=== PATIENT | male | born 1980 | race Caucasian/White ===

== ENCOUNTER → 2019-01-20 | Outpatient (CLI) | payer OTHER ==
--- NOTE | 2019-01-20 09:46 | Diagnostic Imaging Report ---
EXAM: CHEST 2 VIEWS DATE: 01/20/2019 8:54 AM INDICATION: ^[id number] ^0922 ^Other chest pain COMPARISON: None FINDINGS: Lines and tubes: None Heart size normal. No focal pulmonary opacity, pleural effusion or pneumothorax. Upper abdomen unremarkable. No acute bony abnormality. IMPRESSION: No evidence for acute disease. Signed by: Dr. Raza Chiang M.D. on 01/20/2019 9:43 AM
== END ==
LOC: RAD 08:49
PROVIDERS: ATTEND Internal Medicine
DX: R07.89 Other chest pain (principal)
CPT/HCPCS: 71046

== ENCOUNTER → 2020-03-20 | Outpatient (CLI) | payer OTHER ==
[~2020-03-20] MED LIST: IOPAMIDOL 370 MG/ML 200 ML INFUS..BTL INJ ONE; SODIUM CHLORIDE 0.9% 100 ML ONE
--- NOTE | 2020-03-20 09:50 | Diagnostic Imaging Report ---
EXAM: CT Angiogram Chest WITH contrast INDICATION: Aortic aneurysm COMPARISON: Chest radiograph 01/20/2019. TECHNIQUE: Chest was scanned utilizing a multidetector helical scanner from the lung apex through the level of the adrenal glands after administration of IV contrast in arterial phase. Coronal and sagittal reformations were obtained. CT Angiogram protocol was performed. 3D reconstruction was performed and viewed on dedicated workstation. Dose modulation, iterative reconstruction, and/or weight based adjustment of the mA/kV was utilized to reduce the radiation dose to as low as reasonably achievable. IV CONTRAST: 100 mL of Isovue-370 RADIATION DOSE: Total DLP: 375 mGy*cm COMPLICATIONS: None FINDINGS: VASCULAR FINDINGS: Thoracic aorta: Aortic Annulus: 3.0 cm Sinus of Valsalva: 4.0 cm Sinotubular junction: 2.6 cm Ascending Aorta at level of PA: 2.9 cm Mid Arch: 2.3 cm Proximal Descendin.3 cm Mid Descendin.9 cm Distal Descendin.3 cm Aortic hiatus: 2.3 cm Direct origin of the left vertebral artery from the aortic arch. Common origin of brachiocephalic and left common carotid arteries. No evidence of aortic dissection. No significant atherosclerotic changes within the thoracic aorta. The main pulmonary artery is not enlarged. No evidence of central pulmonary embolism. 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 LINES/ TUBES: None. LUNGS AND AIRWAYS: The central airways are patent. No evidence of pneumonia or pulmonary edema. PLEURA: The pleural spaces are clear. HEART AND MEDIASTINUM: The thyroid gland is normal. No supraclavicular, axillary, mediastinal, or hilar lymphadenopathy. The heart is not enlarged. No pericardial effusion. UPPER ABDOMEN: No acute findings. BONES/SOFT TISSUES: No acute osseous abnormality. No suspicious lytic or blastic lesion. IMPRESSION: No thoracic aortic aneurysm or dissection. Thoracic aortic measurements as above. 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 No focal pneumonia or pulmonary edema. Signed by: Shiloh Juarez MD on 03/20/2020 9:47 AM
== END ==
LOC: CT 08:29
PROVIDERS: ATTEND Internal Medicine
DX: Z13.6 Encounter for screening for cardiovascular disorders (principal); I71.2 Thoracic aortic aneurysm, without rupture
CPT/HCPCS: 71275; J7050; Q9967

== ENCOUNTER → 2020-05-23 | Outpatient (CLI) | payer OTHER ==
--- NOTE | 2020-05-23 10:46 | Diagnostic Imaging Report ---
EXAM: CTA of the Abdominal Aorta and Pelvic Arteries WITH Contrast INDICATION: ^[id number] ^0930 ^CELIAC STENOSIS COMPARISON: CT chest 03/20/2020 TECHNIQUE: Multi-detector CT technology was employed. CTA of the abdomen and pelvis was performed after the administration of IV contrast. IV CONTRAST: 150 mL of Omnipaque 350 ORAL CONTRAST: None COMPLICATIONS: None RADIATION DOSE: Total DLP: 400 mGy*cm Estimated effective dose: (DLP x 0.015 x size factor) mSv CTDIvol has been reviewed. It is below the limits set by the Radiation Protocol Committee (RPC). Dose modulation, iterative reconstruction, and/or weight based adjustment of the mA/kV was utilized to reduce the radiation dose to as low as reasonably achievable. For optimization of anatomic evaluation, multiplanar reconstruction, maximum intensity projections, and advanced 3-D off-line postprocessing were performed on a dedicated stand-alone workstation under the direct supervision of the interpreting physician. FINDINGS: Potential study limitations: None. VASCULAR WITH ADVANCED 3-D OFF-LINE POSTPROCESSING: The abdominal aorta is normal in course, caliber, and contour. There is no acute aortic pathology . Aortic plaques: None The abdominal aorta measures: 2.4 cm at the supramesenteric segment 2.2 cm at the mesenteric segment 2.2 cm at the renal segment 1.8 cm at the mid infrarenal segment 1.8 cm at the aortic bifurcation. When compared to the previous CTA from 03/20/2020, there has been interval resolution of the previously seen celiac artery stenosis. The caliber of the celiac artery on today's study is normal. There is slight indentation of the anterior aspect of the celiac artery likely reflective of the median arcuate ligament. The superior mesenteric and inferior mesenteric arteries are normal. The pelvic arteries are normal in caliber and contour. There are no atherosclerotic changes of the pelvic arteries. 1.1 cm at the right common iliac artery 1.1 cm at the right external iliac artery 0.8 cm at the left common iliac artery 0.8 cm at the left external iliac artery LOWER CHEST: Unremarkable. ABDOMEN: The liver, gallbladder, spleen, and pancreas appear normal. The adrenal glands appear normal. Both kidneys are normal in size, shape, and density. There is no abnormal mass or hydronephrosis. PELVIS: There is no significant retroperitoneal adenopathy. No free fluid or free air within the abdomen or pelvis. The bowel appears unremarkable. The urinary bladder appears normal. BONES: Unremarkable IMPRESSION: 1. No acute vascular pathology within the abdomen and pelvis. 2. 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 Stenosis on the previous examination likely reflective vasospasm and/or transient external compression. The caliber of the celiac artery on today's study is normal. Signed by: Praful Riley MD on 05/23/2020 10:43 AM
== END ==
LOC: CT 08:40
PROVIDERS: ATTEND Internal Medicine
DX: I77.4 Celiac artery compression syndrome (principal)
CPT/HCPCS: 74174; J7050; Q9967